=== PATIENT | male | born 1935 | race Caucasian/White ===

== ENCOUNTER 2017-10-01 14:33 | Observation (INO) | payer MEDICARE, BC ==
[2017-10-01] MEDS ORDERED: Sodium Chloride 0.9% 10 ML Syringe FLUSH PRN ×2 (14:46→17:57)
[2017-10-01] MEDS ORDERED: Aspirin 81 MG Tab.Chew PO ONE (14:46)
[2017-10-01] MEDS ORDERED: Nitroglycerin 0.4 MG Tab.SL SL PRN ×2 (14:46→17:57)
[2017-10-01] MEDS ORDERED: Morphine 4 MG/ML Syringe IVPUSH PRN ×2 (14:46→17:57)
--- NOTE | 2017-10-01 14:50 | EDM.PDOC ---
ED HPI GENERAL MEDICAL PROBLEM - General Chief Complaint: Chest Pain Stated Complaint: CHEST PAINS Time Seen by Provider: 10/01/17 14:39 Source of Information: Reports: Patient, Family, Old Records, RN Notes Reviewed History Limitations: Reports: No Limitations - History of Present Illness INITIAL COMMENTS - FREE TEXT/NARRATIVE: 82-year-old gentleman presents to the emergency department today with complaint of chest pain, he states the pain started about 3 hours prior it is predominantly across his chest but heavy on the left side he has no nausea no diaphoresis no shortness of breath he states he was not doing anything in particular when the chest pain, rates it 5 out of 10. Does have a known history coronary artery disease he does not recall when his last stent was placed, review of records show a stress test in 2015 which does show an abnormal stress test with signs of ischemia Chest Pain Score (Numeric/FACES): 5 - Related Data Allergies Allergy/AdvReac Type Severity Reaction Status Date / Time Penicillins Allergy Fatigue Verified 10/01/17 14:45 Home Meds: Home Meds Aspirin [Low Dose Aspirin EC] 81 mg PO DAILY 04/22/14 [History] Multivitamin with Minerals [[place]erritt Multivitamin with Mineral] 1 tab PO DAILY 04/22 [History] Metoprolol Succinate [Toprol XL] 25 mg PO DAILY 03/03/15 [History] Albuterol [Ventolin HFA] 2 puff IH Q6H PRN 10/01/17 [History] Chondroitin/Glucosamine [Glucosamine-Chondroitin] 2 tab PO DAILY 10/01/17 [ History] Pravastatin [Pravachol] 40 mg PO DAILY 10/01/17 [History] Past Medical History HEENT History: Reports: Cataract, Hard of Hearing, Impaired Vision, Macular Degeneration Cardiovascular History: Reports: CAD, High Cholesterol, Hypertension, SOB on Exertion, Stents Respiratory History: Reports: SOB Genitourinary History: Reports: Renal Disease, Other (See Below) Other Genitourinary History: 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 Neurological History: Reports: Brain Injury, Other (See Below) Other Neuro History: subdural hematoma Dermatologic History: Reports: Other (See Below) Other Dermatologic History: Rosacia - Infectious Disease History Infectious Disease History: Reports: Chicken Pox, Measles, Mumps, Rubella - Past Surgical History HEENT Surgical History: Reports: Adenoidectomy, Cataract Surgery, Eye Surgery, Tonsillectomy Cardiovascular Surgical History: Reports: Coronary Artery Bypass, Coronary Artery Stent Male Surgical History: Reports: Other (See Below) Neurological Surgical History: Reports: Other (See Below) Social & Family History - Tobacco Use Smoking Status *Q: Never Smoker - Caffeine Use Caffeine Use: Reports: Coffee, Soda - Recreational Drug Use Recreational Drug Use: No ED ROS GENERAL - Review of Systems Review Of Systems: See Below Constitutional: Reports: No Symptoms HEENT: Reports: No Symptoms Respiratory: Reports: No Symptoms Cardiovascular: Reports: Chest Pain GI/Abdominal: Reports: No Symptoms : Reports: No Symptoms Musculoskeletal: Reports: No Symptoms Skin: Reports: No Symptoms Neurological: Reports: No Symptoms ED EXAM, GENERAL - Physical Exam Exam: See Below Free Text/Narrative:: General: Male, not in any distress, alert and oriented x3 HEENT: head is atraumatic normocephalic, eyes pupils equal round reactive to light, sclera clear no conjunctivitis appreciated. Ears tympanic membranes clear and keene landmarks and light reflex are present bilaterally canals are clear. Nose no septal deviation, nares are clear, no blood present. Mouth mucosa is moist and pink no erythema or exudate noted in soft palate, tongue is midline uvula is midline, dentition is intact. Neck: Supple no thyromegaly no tracheal deviation. Nodes: Cervical nodes subclavicular nodes nontender no palpable lymphadenopathy noted. Lungs: clear to auscultation bilaterally with symmetrical respirations, no adventitious noise appreciated. CV: Regular rate and rhythm S1 and S2 appreciated no murmurs rubs or gallops noted. Abdomen: Soft, nontender, no palpable masses or organomegaly appreciated, no distention no guarding bowel sounds are present, . Neuro: Cranial nerves II through XII grossly intact Skin: Warm and dry, intact Extremities: No lower extremity edema appreciated, Course - Vital Signs Last Recorded V/S: Last Vital Signs Temp 98.8 F 10/01/17 14:39 Pulse 58 L 10/01/17 16:24 Resp 15 10/01/17 16:24 BP 114/53 L 10/01/17 16:24 Pulse Ox 99 10/01/17 16:24 - Orders/Labs/Meds Orders: Active Orders 24 hr Category Date Time Status Cardiac Monitoring [RC] .As Directed Care 10/01/17 14:46 Active EKG Documentation Completion [RC] ASDIRECTED Care 10/01/17 14:47 Active EKG Documentation Completion [RC] ASDIRECTED Care 10/01/17 15:01 Active Peripheral IV Care [RC] . DIRECTED Care 10/01/17 14:47 Active Chest 1V Frontal [CR] Stat Exams 10/01/17 14:47 Taken Morphine Med 10/01/17 14:46 Active 4 mg IVPUSH Q10M PRN Nitroglycerin [Nitrostat] Med 10/01/17 14:46 Active 0.4 mg SL Q5M PRN Sodium Chloride 0.9% [Saline Flush] Med 10/01/17 14:46 Active 10 ml FLUSH ASDIRECTED PRN Peripheral IV Insertion Adult [OM.PC] Stat Oth 10/01/17 14:46 Ordered Saline Lock Insert [OM.PC] Stat Oth 10/01/17 14:46 Ordered EKG 12 Lead [EK] Stat Ther 10/01/17 14:47 Ordered EKG 12 Lead [EK] Stat Ther 10/01/17 15:01 Ordered Medication Orders Morphine Sulfate (Morphine) 4 mg IVPUSH Q10M PRN PRN Reason: Chest Pain Stop: 10/02/17 14:46 Nitroglycerin (Nitrostat) 0.4 mg SL Q5M PRN PRN Reason: Chest Pain Stop: 10/02/17 14:46 Last Admin: 10/01/17 14:51 Dose: 0.4 mg Sodium Chloride (Saline Flush) 10 ml FLUSH ASDIRECTED PRN PRN Reason: Keep Vein Open Last Admin: 10/01/17 15:06 Dose: 10 ml Labs: Laboratory Tests 10/01/17 10/01/17 Range/Units 14:59 14:59 WBC 6.4 (4.5-11.0) K/uL RBC 4.76 (4.30-5.90) M/uL Hgb 14.4 (12.0-15.0) g/dL Hct 42.6 (40.0-54.0) % MCV 90 (80-98) fL MCH 30 (27-31) pg MCHC 34 (32-36) % Plt Count 155 (150-400) K/uL Neut % (Auto) 80 H (36-66) % Lymph % (Auto) 11 L (24-44) % [place] % (Auto) 8 H (2-6) % Eos % (Auto) 1 L (2-4) % Baso % (Auto) 0 (0-1) % Sodium 141 (140-148) mmol/L Potassium 4.0 (3.6-5.2) mmol/L Chloride 107 (100-108) mmol/L Carbon Dioxide 25 (21-32) mmol/L Anion Gap 9.4 (5.0-14.0) mmol/L BUN 22 H (7-18) mg/dL Creatinine 1.5 H (0.8-1.3) mg/dL Est Cr Clr Drug Dosing 40.96 mL/min Estimated GFR (MDRD) 45 L (>60) Glucose 152 H (74-106) mg/dL Calcium 8.8 (8.5-10.1) mg/dL Total Bilirubin 0.9 (0.2-1.0) mg/dL AST 22 (15-37) U/L ALT 26 (12-78) U/L Alkaline Phosphatase 65 (46-116) U/L CK-MB (CK-2) 3.1 (0-3.6) mg/mL Troponin I < 0.017 (0.000-0.056) ng/mL Total Protein 6.3 L (6.4-8.2) g/dL Albumin 3.3 L (3.4-5.0) g/dL Globulin 3.0 (2.3-3.5) g/dL Albumin/Globulin Ratio 1.1 L (1.2-2.2) Meds: Medications Generic Name Dose Route Start Last Admin Trade Name Freq PRN Reason Stop Dose Admin Morphine Sulfate 4 mg 10/01/17 14:46 Morphine IVPUSH 10/02/17 14:46 Q10M PRN Chest Pain Nitroglycerin 0.4 mg 10/01/17 14:46 10/01/17 14:51 Nitrostat SL 10/02/17 14:46 0.4 mg Q5M PRN Administration Chest Pain Sodium Chloride 10 ml 10/01/17 14:46 10/01/17 15:06 Saline Flush FLUSH 10 ml ASDIRECTED PRN Administration Keep Vein Open Discontinued Medications Generic Name Dose Route Start Last Admin Trade Name Freq PRN Reason Stop Dose Admin Aspirin 324 mg 10/01/17 14:46 10/01/17 14:51 Aspirin PO 10/01/17 14:47 324 mg ONETIME ONE Administration Departure - Departure Time of Disposition: 16:28 Disposition: Admitted As Inpatient 65 Condition: Fair Clinical Impression: Unstable angina Referrals: PCP,None [Primary Care Provider] - Forms: ED Department Discharge - My Orders Last 24 Hours: My Active Orders 10/01/17 14:46 Cardiac Monitoring [RC] .As Directed Morphine 4 mg IVPUSH Q10M PRN Nitroglycerin [Nitrostat] 0.4 mg SL Q5M PRN Sodium Chloride 0.9% [Saline Flush] 10 ml FLUSH ASDIRECTED PRN Peripheral IV Insertion Adult [OM.PC] Stat Saline Lock Insert [OM.PC] Stat 10/01/17 14:47 EKG Documentation Completion [RC] ASDIRECTED Peripheral IV Care [RC] . DIRECTED Chest 1V Frontal [CR] Stat EKG 12 Lead [EK] Stat 10/01/17 15:01 EKG Documentation Completion [RC] ASDIRECTED EKG 12 Lead [EK] Stat - Assessment/Plan Last 24 Hours: My Active Orders 10/01/17 14:46 Cardiac Monitoring [RC] .As Directed Morphine 4 mg IVPUSH Q10M PRN Nitroglycerin [Nitrostat] 0.4 mg SL Q5M PRN Sodium Chloride 0.9% [Saline Flush] 10 ml FLUSH ASDIRECTED PRN Peripheral IV Insertion Adult [OM.PC] Stat Saline Lock Insert [OM.PC] Stat 10/01/17 14:47 EKG Documentation Completion [RC] ASDIRECTED Peripheral IV Care [RC] . 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 Fong fire production operator social professionals at [facility], recommended admission for rule out with serial troponins, if troponins elevate recommended inpatient catheterization and transfer to [place], however if troponins are negative remains chest pain-free during observation recommend cardiac catheterization as an outpatient within the next week. Called discussed case hospitalist social professionals he agreed to come and evaluate the patient emergency department for admission This note was dictated using [employer] voice recognition software please call with any questions on syntax or grammar.
--- NOTE | 2017-10-01 17:56 | PCM.HP ---
H&P History of Present Illness - General Date of Service: 10/01/17 Admit Problem/Dx: Admission Diagnosis/Problem Admission Diagnosis/Problem Chest pain Source of Information: Patient, Family, Provider, RN Notes Reviewed History Limitations: Reports: No Limitations - History of Present Illness Initial Comments - Free Text/Narative: Mr. Ang is an 82-year-old gentleman who is admitted through the emergency department to observation status for further evaluation and management of chest pain. He has a known history of coronary artery disease and is status post coronary artery bypass done several years ago. He also has had further intervention since then with angioplasty and stent placement although he states this also has been several years ago. Today he noted onset of progressively more severe pain across his central chest described as a moderate to severe ache that became worse. There were no associated symptoms of shortness of breath , diaphoresis, or nausea. After the pain had lasted approximately 2 hours at home he came into the emergency department for further evaluation. Initial EKG did show mild ST segment depression in the anterolateral leads. He was given one sublingual nitroglycerin and his pain resolved, there was modest improvement in the ST segment depression noted after the nitroglycerin. Other labs have been normal including troponin level and CK-MB. Risk factors for coronary artery disease include hypertension, hypercholesterolemia, and a positive family history. Calculated HEART score is 6. Chest Pain Score (Numeric/FACES): 5 - Related Data Allergies/Adverse Reactions: Allergies Allergy/AdvReac Type Severity Reaction Status Date / Time Penicillins Allergy Fatigue Verified 10/01/17 14:45 Home Medications: Home Meds Aspirin [Low Dose Aspirin EC] 81 mg PO DAILY 04/22/14 [History] Multivitamin with Minerals [Merritt Multivitamin with Mineral] 1 tab PO DAILY 04/22 [History] Metoprolol Succinate [Toprol XL] 25 mg PO DAILY 03/03/15 [History] Albuterol [Ventolin HFA] 2 puff IH Q6H PRN 10/01/17 [History] Chondroitin/Glucosamine [Glucosamine-Chondroitin] 2 tab PO DAILY 10/01/17 [ History] Pravastatin [Pravachol] 40 mg PO DAILY 10/01/17 [History] Past Medical History HEENT History: Reports: Cataract, Hard of Hearing, Impaired Vision, Macular Degeneration Cardiovascular History: Reports: CAD, High Cholesterol, Hypertension, SOB on Exertion, Stents Respiratory History: Reports: SOB Genitourinary History: Reports: Renal Disease, Other (See Below) Other Genitourinary History: 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 Neurological History: Reports: Brain Injury, Other (See Below) Other Neuro History: subdural hematoma Dermatologic History: Reports: Other (See Below) Other Dermatologic History: [place] - Infectious Disease History Infectious Disease History: Reports: Chicken Pox, Measles, Mumps, Rubella - Past Surgical History HEENT Surgical History: Reports: Adenoidectomy, Cataract Surgery, Eye Surgery, Tonsillectomy Cardiovascular Surgical History: Reports: Coronary Artery Bypass, Coronary Artery Stent Male Surgical History: Reports: Other (See Below) Neurological Surgical History: Reports: Other (See Below) Social & Family History - Tobacco Use Smoking Status *Q: Never Smoker - Caffeine Use Caffeine Use: Reports: Coffee, Soda - Recreational Drug Use Recreational Drug Use: No H&P Review of Systems - Review of Systems: Review Of Systems: See Below General: Denies: Fever, Chills, Weakness, Diaphoresis HEENT: Reports: No Symptoms Pulmonary: Reports: No Symptoms Cardiovascular: Reports: Chest Pain, Dyspnea on Exertion. Denies: Palpitations , Orthopnea, PND, Edema, Lightheadedness, Syncope Gastrointestinal: Reports: No Symptoms Genitourinary: Reports: No Symptoms Musculoskeletal: Reports: No Symptoms Skin: Reports: No Symptoms Psychiatric: Reports: No Symptoms Neurological: Reports: No Symptoms Hematologic/Lymphatic: Reports: No Symptoms Immunologic: Reports: No Symptoms Exam - Exam Exam: See Below - Vital Signs Vital Signs: Last Vital Signs Temp 98.8 F 10/01/17 14:39 Pulse 58 L 10/01/17 16:24 Resp 15 10/01/17 16:24 BP 114/53 L 10/01/17 16:24 Pulse Ox 99 10/01/17 16:24 Weight: 440 lb 14.792 oz - Exam Quality Assessment: DVT Prophylaxis General: Alert, Oriented, Cooperative HEENT: Conjunctiva Clear, Hearing Intact, Mucosa Moist & [place], Normal Nasal Septum, Posterior Pharynx Clear, Pupils Equal Neck: Supple, Trachea Midline, +2 Carotid Pulse wo Bruit Lungs: Clear to Auscultation, Normal Respiratory Effort, Decreased Breath Sounds Cardiovascular: Regular Rate, Regular Rhythm, Normal S1, Normal S2 GI/Abdominal Exam: Soft, Non-Tender, No Organomegaly, No Distention Back Exam: Normal Inspection, Full Range of Motion Extremities: Non-Tender, No Pedal Edema Skin: Warm, Dry, Intact Neurological: Cranial Nerves Intact, Strength Equal Bilateral, Normal Speech, Normal Tone, Sensation Intact. No: Focal Deficit Neuro Extensive - Mental Status: Alert, Oriented x3, Normal Mood/Affect, Normal Cognition, Memory Intact - Patient Data Lab Results Last 24 hrs: Laboratory Results - last 24 hr 10/01/17 10/01/17 Range/Units 14:59 14:59 WBC 6.4 (4.5-11.0) K/uL RBC 4.76 (4.30-5.90) M/uL Hgb 14.4 (12.0-15.0) g/dL Hct 42.6 (40.0-54.0) % MCV 90 (80-98) fL MCH 30 (27-31) pg MCHC 34 (32-36) % Plt Count 155 (150-400) K/uL Neut % (Auto) 80 H (36-66) % Lymph % (Auto) 11 L (24-44) % [place] % (Auto) 8 H (2-6) % Eos % (Auto) 1 L (2-4) % Baso % (Auto) 0 (0-1) % Sodium 141 (140-148) mmol/L Potassium 4.0 (3.6-5.2) mmol/L Chloride 107 (100-108) mmol/L Carbon Dioxide 25 (21-32) mmol/L Anion Gap 9.4 (5.0-14.0) mmol/L BUN 22 H (7-18) mg/dL Creatinine 1.5 H (0.8-1.3) mg/dL Est Cr Clr Drug Dosing 40.96 mL/min Estimated GFR (MDRD) 45 L (>60) Glucose 152 H (74-106) mg/dL Calcium 8.8 (8.5-10.1) mg/dL Total Bilirubin 0.9 (0.2-1.0) mg/dL AST 22 (15-37) U/L ALT 26 (12-78) U/L Alkaline Phosphatase 65 (46-116) U/L CK-MB (CK-2) 3.1 (0-3.6) mg/mL Troponin I < 0.017 (0.000-0.056) ng/mL Total Protein 6.3 L (6.4-8.2) g/dL Albumin 3.3 L (3.4-5.0) g/dL Globulin 3.0 (2.3-3.5) g/dL Albumin/Globulin Ratio 1.1 L (1.2-2.2) Result Diagrams: 10/01/17 14:59 10/01/17 14:59 *Q Meaningful Use (ADM) - VTE Risk Assess *Q Each Risk Factor Represents 1 Point: None Total Score 1 Point Risk Factors: 0 Each Risk Factor Represents 2 Points: None Total Score 2 Point Risk Factors: 0 Each Risk Factor Represents 3 Points: Age 75 Years or Greater Total Score 3 Point Risk Factors: 3 Each Risk Factor Represents 5 Points: None Total Score 5 Point Risk Factors: 0 Venous Thromboembolism Risk Factor Score *Q: 3 Problem List Initiated/Reviewed/Updated: Yes Orders Last 24hrs: Active Orders 24 hr Category Date Time Status Patient Status Manage Transfer [TRANSFER] Routine ADT 10/01/17 17:40 Active Cardiac Monitoring [RC] .As Directed Care 10/01/17 14:46 Active EKG Documentation Completion [RC] ASDIRECTED Care 10/01/17 14:47 Active EKG Documentation Completion [RC] ASDIRECTED Care 10/01/17 15:01 Active Peripheral IV Care [RC] . DIRECTED Care 10/01/17 14:47 Active Chest 1V Frontal [CR] Stat Exams 10/01/17 14:47 Taken TROPONIN I [CHEM] Stat Lab 10/01/17 17:39 Ordered Morphine Med 10/01/17 14:46 Active 4 mg IVPUSH Q10M PRN Nitroglycerin [Nitrostat] Med 10/01/17 14:46 Active 0.4 mg SL Q5M PRN Sodium Chloride 0.9% [Saline Flush] Med 10/01/17 14:46 Active 10 ml FLUSH ASDIRECTED PRN Peripheral IV Insertion Adult [OM.PC] Stat Oth 10/01/17 14:46 Ordered Saline Lock Insert [OM.PC] Stat Oth 10/01/17 14:46 Ordered Resuscitation Status Routine Resus Stat 10/01/17 17:42 Ordered EKG 12 Lead [EK] Stat Ther 10/01/17 14:47 Ordered EKG 12 Lead [EK] Stat Ther 10/01/17 15:01 Ordered Medication Orders Morphine Sulfate (Morphine) 4 mg IVPUSH Q10M PRN PRN Reason: Chest Pain Stop: 10/02/17 14:46 Nitroglycerin (Nitrostat) 0.4 mg SL Q5M PRN PRN Reason: Chest Pain Stop: 10/02/17 14:46 Last Admin: 10/01/17 14:51 Dose: 0.4 mg Sodium Chloride (Saline Flush) 10 ml FLUSH ASDIRECTED PRN PRN Reason: Keep Vein Open Last Admin: 10/01/17 15:06 Dose: 10 ml Assessment/Plan Comment:: ASSESSMENT AND PLAN CHEST PAIN-2.5 to 3 hours of pain in this 82-year-old gentleman with a known history of coronary artery disease. EKG at the time of initial presentation the emergency department showed mild ST segment changes in the anterolateral leads that did improve modestly following sublingual nitroglycerin and resolution of his pain. He has had no recurrent pain since that time. -Observation admission, monitor in ICU -Serial troponin levels -If troponin levels become positive plan for inpatient transfer to [place] for cardiac catheterization -If troponin levels remain negative plan for outpatient cardiac catheterization in [place] later this week CHRONIC KIDNEY DISEASE STAGE III-history of nephrectomy, with partial resection of the other kidney -Closely monitor urine output and renal function MAINTENANCE ISSUES -DVT prophylaxis; ambulation -GI prophylaxis; not indicated -Valenzuela catheter; not indicated -Nutrition; regular diet -Nicotine dependence; not required CODE STATUS-FULL CODE ADMISSION STATUS-this patient will be admitted to observation status, expect no more than a one night hospital stay for evaluation and management of problems as outlined above. DISPOSITION-anticipate discharge to home after the hospital stay. PRIMARY CARE PROVIDER-Dr. Zamorano
[2017-10-01] MEDS ORDERED: Albuterol 8 GM Inhaler INH PRN (17:57)
[2017-10-01] MEDS ORDERED: Acetaminophen 325 MG Tab PO PRN (17:57)
[2017-10-01] MEDS ORDERED: Clopidogrel 75 MG Tab PO ONE (19:18)
[2017-10-01] MEDS ORDERED: Heparin Sodium 5,000 Units/ML Vial IVPUSH ONE (19:18)
[2017-10-01] MEDS ORDERED: Heparin Sodium/D5W 25,000 UNITS/500 ML BAG IV SCH (19:30)
--- NOTE | 2017-10-01 20:01 | PCM.DCSUM1 ---
Discharge Summary - Hospital Course Brief History: Mr. Sexton is an 82-year-old gentleman who is admitted to observation status through the emergency department for further evaluation and management of chest pain. - Discharge Data Discharge Date: 10/01/17 Discharge Disposition: DC/Tfer to Acute Hospital 02 Condition: Fair - Discharge Diagnosis/Problem(s) (1) Non-ST elevated myocardial infarction SNOMED Code(s): 439039161 ICD Code: I21.4 - NON-ST ELEVATION (NSTEMI) MYOCARDIAL INFARCTION Status: Acute Current Visit: Yes (2) CAD (coronary artery disease) SNOMED Code(s): 10915322 ICD Code: I25.10 - ATHSCL HEART DISEASE OF [place] CORONARY ARTERY W/O ANG PCTRS Status: Acute Current Visit: Yes (3) CKD (chronic kidney disease) stage 3, GFR 30-59 ml/min SNOMED Code(s): 262904254 ICD Code: N18.3 - CHRONIC KIDNEY DISEASE, STAGE 3 (MODERATE) Status: Acute Current Visit: Yes (4) Hypertension SNOMED Code(s): 70208715 ICD Code: I10 - ESSENTIAL (PRIMARY) HYPERTENSION Status: Acute Current Visit: Yes - Patient Summary/Data Hospital Course: Mr. Ang is an 82-year-old gentleman who was admitted through the emergency department to observation status for further evaluation and management of chest pain. He has a known history of coronary artery disease and is status post coronary artery bypass done several years ago. He also has had further intervention since then with angioplasty and stent placement although he states this also has been several years ago. Today he noted onset of progressively more severe pain across his central chest described as a moderate to severe ache that became worse. There were no associated symptoms of shortness of breath, diaphoresis, or nausea. After the pain had lasted approximately 2 hours at home he came into the emergency department for further evaluation. Initial EKG did show mild ST segment depression in the anterolateral leads. He was given one sublingual nitroglycerin and his pain resolved, there was modest improvement in the ST segment depression noted after the nitroglycerin. Other labs have been normal including troponin level and CK- MB. Risk factors for coronary artery disease include hypertension, hypercholesterolemia, and a positive family history. Calculated HEART score is 6. He was admitted to the hospital on observation status, with serial troponin levels ordered. A level had been ordered at the time of admission it did come back elevated at 0.208. I contacted Dr. Murphy thread cutter at [facility] in [facility], he is recommended patient be transferred to [place] for further evaluation in the morning with cardiac angiogram. Was given aspirin in the emergency department and is currently on a beta chucky as well as statin. He will be given 300 mg of Plavix by mouth and started on continuous infusion of heparin. He will be transferred to [place] via [facility]. - Patient Instructions Diet: Low Sodium Activity: As Tolerated Other/Special Instructions: Patient will be transferred to [facility] in [facility] via [facility] for further cardiac evaluation and management. - Discharge Plan *PRESCRIPTION DRUG MONITORING PROGRAM REVIEWED*: Not Applicable *COPY OF PRESCRIPTION DRUG MONITORING REPORT IN PATIENT FRANDY: Not Applicable Home Medications: Home Meds Aspirin [Low Dose Aspirin EC] 81 mg PO DAILY 04/22/14 [History] Multivitamin with Minerals [Merritt Multivitamin with Mineral] 1 tab PO DAILY 04/22 [History] Metoprolol Succinate [Toprol XL] 25 mg PO DAILY 03/03/15 [History] Albuterol [Ventolin HFA] 2 puff IH Q6H PRN 10/01/17 [History] Chondroitin/Glucosamine [Glucosamine-Chondroitin] 2 tab PO DAILY 10/01/17 [ History] Pravastatin [Pravachol] 40 mg PO DAILY 10/01/17 [History] Referrals: Sree Zamorano MD [Physician] - - Discharge Summary/Plan Comment DC Time >30 min.: No - Patient Data Vitals - Most Recent: Last Vital Signs Temp 97.5 F 10/01/17 18:15 Pulse 54 L 10/01/17 19:53 Resp 23 H 10/01/17 19:53 BP 115/37 L 10/01/17 19:53 Pulse Ox 99 10/01/17 19:53 Weight - Most Recent: 194 lb 7.163 oz Lab Results - Last 24 hrs: Laboratory Results - last 24 hr 10/01/17 10/01/17 10/01/17 Range/Units 14:59 14:59 17:52 WBC 6.4 (4.5-11.0) K/uL RBC 4.76 (4.30-5.90) M/uL Hgb 14.4 (12.0-15.0) g/dL Hct 42.6 (40.0-54.0) % MCV 90 (80-98) fL MCH 30 (27-31) pg MCHC 34 (32-36) % Plt Count 155 (150-400) K/uL Neut % (Auto) 80 H (36-66) % Lymph % (Auto) 11 L (24-44) % [place] % (Auto) 8 H (2-6) % Eos % (Auto) 1 L (2-4) % Baso % (Auto) 0 (0-1) % Sodium 141 (140-148) mmol/L Potassium 4.0 (3.6-5.2) mmol/L Chloride 107 (100-108) mmol/L Carbon Dioxide 25 (21-32) mmol/L Anion Gap 9.4 (5.0-14.0) mmol/L BUN 22 H (7-18) mg/dL Creatinine 1.5 H (0.8-1.3) mg/dL Est Cr Clr Drug Dosing 40.96 mL/min Estimated GFR (MDRD) 45 L (>60) Glucose 152 H (74-106) mg/dL Calcium 8.8 (8.5-10.1) mg/dL Total Bilirubin 0.9 (0.2-1.0) mg/dL AST 22 (15-37) U/L ALT 26 (12-78) U/L Alkaline Phosphatase 65 (46-116) U/L CK-MB (CK-2) 3.1 (0-3.6) mg/mL Troponin I < 0.017 0.208 H* (0.000-0.056) ng/mL Total Protein 6.3 L (6.4-8.2) g/dL Albumin 3.3 L (3.4-5.0) g/dL Globulin 3.0 (2.3-3.5) g/dL Albumin/Globulin Ratio 1.1 L (1.2-2.2) Med Orders - Current: Current Medications Acetaminophen (Tylenol) 650 mg PO Q4H PRN PRN Reason: Pain (Mild 1-3)/fever Albuterol (Ventolin Hfa) 0 gm INH Q4H PRN PRN Reason: Shortness of Breath Aspirin (Halfprin) 81 mg PO DAILY KHADAR Heparin Sodium/Dextrose (Heparin 25,000 Units In D5w 500 Ml) 25,000 units in 500 mls @ 20 mls/hr IV TITRATE KHADAR; Protocol Last Admin: 10/01/17 19:34 Dose: 1,000 units/hr, 20 mls/hr Metoprolol Succinate (Toprol Xl) 25 mg PO DAILY [facility] Morphine Sulfate (Morphine) 4 mg IVPUSH Q10M PRN PRN Reason: Chest Pain Stop: 10/02/17 17:45 Nitroglycerin (Nitrostat) 0.4 mg SL Q5M PRN PRN Reason: Chest Pain Stop: 10/02/17 17:45 Last Admin: 10/01/17 18:49 Dose: 0.4 mg Pravastatin Sodium (Pravachol) 40 mg PO DAILY [facility] Sodium Chloride (Saline Flush) 10 ml FLUSH ASDIRECTED PRN PRN Reason: Keep Vein Open Discontinued Medications Aspirin (Aspirin) 324 mg PO ONETIME ONE Stop: 10/01/17 14:47 Last Admin: 10/01/17 14:51 Dose: 324 mg Aspirin (Aspirin) 81 mg PO DAILY [facility] Clopidogrel Bisulfate (Plavix) 300 mg PO ONETIME ONE Stop: 10/01/17 19:19 Last Admin: 10/01/17 19:32 Dose: 300 mg Heparin Sodium (Porcine) (Heparin Sodium) 4,000 units IVPUSH .BOLUS ONE Stop: 10/01/17 19:19 Last Admin: 10/01/17 19:32 Dose: 4,000 units Morphine Sulfate (Morphine) 4 mg IVPUSH Q10M PRN PRN Reason: Chest Pain Stop: 10/02/17 14:46 Nitroglycerin (Nitrostat) 0.4 mg SL Q5M PRN PRN Reason: Chest Pain Stop: 10/02/17 14:46 Last Admin: 10/01/17 14:51 Dose: 0.4 mg Sodium Chloride (Saline Flush) 10 ml FLUSH ASDIRECTED PRN PRN Reason: Keep Vein Open Last Admin: 10/01/17 15:06 Dose: 10 ml - Exam General: Reports: Alert, Oriented, Cooperative, No Acute Distress Lungs: Reports: Clear to Auscultation, Normal Respiratory Effort Cardiovascular: Reports: Regular Rate, Regular Rhythm, No Murmurs GI/Abdominal Exam: Soft, Non-Tender, No Organomegaly, No Distention
[2017-10-01 20:21] VITALS: BP 109/53
[2017-10-02] MEDS ORDERED: Pravastatin 20 MG Tab PO SCH (09:00)
[2017-10-02] MEDS ORDERED: Aspirin 81 MG Tab.EC PO SCH (09:00)
[2017-10-02] MEDS ORDERED: Aspirin 81 MG Tab.Chew PO SCH (09:00)
[2017-10-02] MEDS ORDERED: Metoprolol Succinate 25 MG Tab.ER PO SCH (09:00)
--- NOTE | 2017-10-02 14:33 | CR ---
Portable chest Intact sternal wires are present. The heart and vascular structures are within normal limits. There a re no infiltrates or effusions. Impression: 1. No acute findings.
== END 2017-10-01 20:37 ==
LOC: JP.ED 14:33 → JP.ICU 17:40
PROVIDERS: ADMIT Hospitalist; ATTEND Hospitalist
DX: I21.4 Non-ST elevation (NSTEMI) myocardial infarction (principal); I25.10 Atherosclerotic heart disease of native coronary artery without angina pectoris; I12.9 Hypertensive chronic kidney disease with stage 1 through stage 4 chronic kidney disease, or unspecified chronic kidney disease; N18.3 Chronic kidney disease, stage 3 (moderate); Z90.5 Acquired absence of kidney; E78.00 Pure hypercholesterolemia, unspecified; Z79.82 Long term (current) use of aspirin; Z79.899 Other long term (current) drug therapy; Z95.1 Presence of aortocoronary bypass graft; Z95.5 Presence of coronary angioplasty implant and graft; Z88.0 Allergy status to penicillin
CPT/HCPCS: 36415; 71045; 80053; 82553; 84484; 85025; 93005; 96365; 96375; 96376; 99285; A9270; J1644; J7050

== ENCOUNTER 2017-11-03 11:01 | Emergency (ER) | payer MEDICARE, BC ==
[2017-11-03] MEDS ORDERED: Aspirin 81 MG Tab.Chew PO ONE (11:09)
--- NOTE | 2017-11-03 11:11 | EDM.PDOC ---
ED HPI GENERAL MEDICAL PROBLEM - General Chief Complaint: Chest Pain Stated Complaint: CHEST PAIN Time Seen by Provider: 11/03/17 11:11 Source of Information: Reports: Patient History Limitations: Reports: No Limitations - History of Present Illness INITIAL COMMENTS - FREE TEXT/NARRATIVE: pt arrived stating his pain was better at this time. He did have chest pain alot of the nite. He did take a nitro this am and he got relief with that. Onset: Today Duration: Hour(s): Location: Reports: Chest Associated Symptoms: Reports: Chest Pain, Shortness of Breath - Related Data Allergies Allergy/AdvReac Type Severity Reaction Status Date / Time Penicillins Allergy Fatigue Verified 11/03/17 11:10 Home Meds: Home Meds Aspirin [Low Dose Aspirin EC] 81 mg PO DAILY 04/22/14 [History] Multivitamin with Minerals [[place] Multivitamin with Mineral] 1 tab PO DAILY 04/22 [History] Metoprolol Succinate [Toprol XL] 25 mg PO DAILY 03/03/15 [History] Albuterol [Ventolin HFA] 2 puff IH Q6H PRN 10/01/17 [History] Chondroitin/Glucosamine [Glucosamine-Chondroitin] 2 tab PO DAILY 10/01/17 [ History] Pravastatin [Pravachol] 40 mg PO DAILY 10/01/17 [History] Clopidogrel [Plavix] 75 mg PO DAILY 11/03/17 [History] Past Medical History HEENT History: Reports: Cataract, Hard of Hearing, Impaired Vision, Macular Degeneration Cardiovascular History: Reports: CAD, High Cholesterol, Hypertension, SOB on Exertion, Stents Respiratory History: Reports: SOB Genitourinary History: Reports: Renal Disease, Other (See Below) Other Genitourinary History: 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 Neurological History: Reports: Brain Injury, Other (See Below) Other Neuro History: subdural hematoma Dermatologic History: Reports: Other (See Below) Other Dermatologic History: [place] - Infectious Disease History Infectious Disease History: Reports: Chicken Pox, Measles, Mumps, Rubella - Past Surgical History HEENT Surgical History: Reports: Adenoidectomy, Cataract Surgery, Eye Surgery, Tonsillectomy Cardiovascular Surgical History: Reports: Coronary Artery Bypass, Coronary Artery Stent Male Surgical History: Reports: Other (See Below) Neurological Surgical History: Reports: Other (See Below) Social & Family History - Caffeine Use Caffeine Use: Reports: Coffee, Soda ED ROS GENERAL - Review of Systems Review Of Systems: See Below Constitutional: Reports: No Symptoms HEENT: Reports: No Symptoms Respiratory: Reports: Shortness of Breath Cardiovascular: Reports: Chest Pain Endocrine: Reports: No Symptoms GI/Abdominal: Reports: No Symptoms : Reports: No Symptoms Musculoskeletal: Reports: No Symptoms Skin: Reports: Dryness ED EXAM, GENERAL - Physical Exam Exam: See Below Free Text/Narrative:: pt arrived with pain in the mid chest. He states this came on in the nite. He had a BLT for supper last nite. He did feel somewhat sob. He did have a grandaughter that was found this week in her apartment and this could be causing him some stress. Exam Limited By: No Limitations General Appearance: Alert, No Apparent Distress, Other (pt took a nitro before arrival and his pain was gone. ) Ears: Normal TMs Nose: Normal Inspection Throat/Mouth: Normal Inspection Head: Atraumatic Neck: Normal Inspection Respiratory/Chest: No Respiratory Distress Cardiovascular: Regular Rate, Rhythm GI/Abdominal: Soft (Male) Exam: Deferred Rectal (Males) Exam: Deferred Back Exam: Normal Inspection Extremities: Normal Inspection Neurological: Alert, Oriented, Normal Cognition Psychiatric: Anxious Course - Vital Signs Last Recorded V/S: Last Vital Signs Temp 36.6 C 11/03/17 11:18 Pulse 57 L 11/03/17 11:18 Resp 18 11/03/17 11:18 BP 146/53 H 11/03/17 11:18 Pulse Ox 99 11/03/17 11:18 - Orders/Labs/Meds Orders: Active Orders 24 hr Category Date Time Status EKG Documentation Completion [RC] ASDIRECTED Care 11/03/17 11:08 Active EKG 12 Lead [EK] Routine Ther 11/03/17 11:08 Ordered Labs: Laboratory Tests 11/03/17 11/03/17 11/03/17 Range/Units 11:12 11:12 11:12 WBC 4.9 (4.5-11.0) K/uL RBC 4.76 (4.30-5.90) M/uL Hgb 14.5 (12.0-15.0) g/dL Hct 42.7 (40.0-54.0) % MCV 90 (80-98) fL MCH 31 (27-31) pg MCHC 34 (32-36) % Plt Count 136 L (150-400) K/uL Neut % (Auto) 70 H (36-66) % Lymph % (Auto) 16 L (24-44) % [place] % (Auto) 12 H (2-6) % Eos % (Auto) 3 (2-4) % Baso % (Auto) 0 (0-1) % D-Dimer, Quantitative (0.0-400.0) ng/mL Sodium 136 L (140-148) mmol/L Potassium 4.1 (3.6-5.2) mmol/L Chloride 102 (100-108) mmol/L Carbon Dioxide 22 (21-32) mmol/L Anion Gap 16.1 H (5.0-14.0) mmol/L BUN 21 H (7-18) mg/dL Creatinine 1.3 (0.8-1.3) mg/dL Est Cr Clr Drug Dosing 47.26 mL/min Estimated GFR (MDRD) 53 L (>60) Glucose 117 H (74-106) mg/dL Calcium 8.5 (8.5-10.1) mg/dL Total Bilirubin 0.7 (0.2-1.0) mg/dL AST 18 (15-37) U/L ALT 25 (12-78) U/L Alkaline Phosphatase 62 (46-116) U/L Troponin I < 0.017 (0.000-0.056) ng/mL NT-Pro-B Natriuret Pep (5-450) pg/mL Total Protein 6.1 L (6.4-8.2) g/dL Albumin 3.4 (3.4-5.0) g/dL Globulin 2.7 (2.3-3.5) g/dL Albumin/Globulin Ratio 1.3 (1.2-2.2) Lipase (73-393) U/L Urine Color Urine Appearance Urine pH (4.5-8.0) Ur Specific [place] (1.008-1.030) Urine Protein (NEGATIVE) mg/dL Urine Glucose (UA) (NEGATIVE) mg/dL Urine Ketones (NEGATIVE) mg/dL Urine Occult Blood (NEGATIVE) Urine Nitrite (NEGAITVE) Urine Bilirubin (NEGATIVE) Urine Urobilinogen (NORMAL) mg/dL Ur Leukocyte Esterase (NEGATIVE) Urine RBC (0-5) Urine WBC (0-5) Ur Epithelial Cells Amorphous Sediment Urine Bacteria Urine Mucus 11/03/17 11/03/17 11/03/17 Range/Units 11:30 11:50 12:16 WBC (4.5-11.0) K/uL RBC (4.30-5.90) M/uL Hgb (12.0-15.0) g/dL Hct (40.0-54.0) % MCV (80-98) fL MCH (27-31) pg MCHC (32-36) % Plt Count (150-400) K/uL Neut % (Auto) (36-66) % Lymph % (Auto) (24-44) % [place] % (Auto) (2-6) % Eos % (Auto) (2-4) % Baso % (Auto) (0-1) % D-Dimer, Quantitative 291 (0.0-400.0) ng/mL Sodium (140-148) mmol/L Potassium (3.6-5.2) mmol/L Chloride (100-108) mmol/L Carbon Dioxide (21-32) mmol/L Anion Gap (5.0-14.0) mmol/L BUN (7-18) mg/dL Creatinine (0.8-1.3) mg/dL Est Cr Clr Drug Dosing mL/min Estimated GFR (MDRD) (>60) Glucose (74-106) mg/dL Calcium (8.5-10.1) mg/dL Total Bilirubin (0.2-1.0) mg/dL AST (15-37) U/L ALT (12-78) U/L Alkaline Phosphatase (46-116) U/L Troponin I (0.000-0.056) ng/mL NT-Pro-B Natriuret Pep 437 (5-450) pg/mL Total Protein (6.4-8.2) g/dL Albumin (3.4-5.0) g/dL Globulin (2.3-3.5) g/dL Albumin/Globulin Ratio (1.2-2.2) Lipase (73-393) U/L Urine Color Yellow Urine Appearance Slightly cloudy Urine pH 5.0 (4.5-8.0) Ur Specific [place] 1.020 (1.008-1.030) Urine Protein Negative (NEGATIVE) mg/dL Urine Glucose (UA) Normal (NEGATIVE) mg/dL Urine Ketones Negative (NEGATIVE) mg/dL Urine Occult Blood Negative (NEGATIVE) Urine Nitrite Negative (NEGAITVE) Urine Bilirubin Negative (NEGATIVE) Urine Urobilinogen 1 (NORMAL) mg/dL Ur Leukocyte Esterase Negative (NEGATIVE) Urine RBC Not seen (0-5) Urine WBC Not seen (0-5) Ur Epithelial Cells Not seen Amorphous Sediment Moderate Urine Bacteria Not seen Urine Mucus Moderate 11/03/17 11/03/17 Range/Units 13:14 14:08 WBC (4.5-11.0) K/uL RBC (4.30-5.90) M/uL Hgb (12.0-15.0) g/dL Hct (40.0-54.0) % MCV (80-98) fL MCH (27-31) pg MCHC (32-36) % Plt Count (150-400) K/uL Neut % (Auto) (36-66) % Lymph % (Auto) (24-44) % [place] % (Auto) (2-6) % Eos % (Auto) (2-4) % Baso % (Auto) (0-1) % D-Dimer, Quantitative (0.0-400.0) ng/mL Sodium (140-148) mmol/L Potassium (3.6-5.2) mmol/L Chloride (100-108) mmol/L Carbon Dioxide (21-32) mmol/L Anion Gap (5.0-14.0) mmol/L BUN (7-18) mg/dL Creatinine (0.8-1.3) mg/dL Est Cr Clr Drug Dosing mL/min Estimated GFR (MDRD) (>60) Glucose (74-106) mg/dL Calcium (8.5-10.1) mg/dL Total Bilirubin (0.2-1.0) mg/dL AST (15-37) U/L ALT (12-78) U/L Alkaline Phosphatase (46-116) U/L Troponin I < 0.017 (0.000-0.056) ng/mL NT-Pro-B Natriuret Pep (5-450) pg/mL Total Protein (6.4-8.2) g/dL Albumin (3.4-5.0) g/dL Globulin (2.3-3.5) g/dL Albumin/Globulin Ratio (1.2-2.2) Lipase 61 L (73-393) U/L Urine Color Urine Appearance Urine pH (4.5-8.0) Ur Specific [place] (1.008-1.030) Urine Protein (NEGATIVE) mg/dL Urine Glucose (UA) (NEGATIVE) mg/dL Urine Ketones (NEGATIVE) mg/dL Urine Occult Blood (NEGATIVE) Urine Nitrite (NEGAITVE) Urine Bilirubin (NEGATIVE) Urine Urobilinogen (NORMAL) mg/dL Ur Leukocyte Esterase (NEGATIVE) Urine RBC (0-5) Urine WBC (0-5) Ur Epithelial Cells Amorphous Sediment Urine Bacteria Urine Mucus Meds: Medications Discontinued Medications Generic Name Dose Route Start Last Admin Trade Name Freq PRN Reason Stop Dose Admin Aspirin 324 mg 11/03/17 11:09 11/03/17 11:24 Aspirin PO 11/03/17 11:10 324 mg ONETIME ONE Administration - Re-Assessments/Exams Free Text/Narrative Re-Assessment/Exam: 11/03/17 14:46 Pt had 2 trops both of which were normal. His ekg is unchanged. His other labs look good. His bnp is not highj and the ddimer does not have sig elevation. His chest xray is not remarkable, He had mild rt upper tenderness and he had a uS of the gb which showed multiople stones some were toward the neck of the GB. His lipase was niormal. Departure - Departure Time of Disposition: 14:50 Disposition: Home, Self-Care 01 Condition: Fair Clinical Impression: Atypical chest pain, Cholelithiasis Referrals: PCP,None [Primary Care Provider] - Forms: ED Department Discharge Care Plan Goals: appt with dR [facility]al[facility] IN 4-5 DAYS, RTC IF SEVERE PAIN RETURNS, DO NOT EAT LATE AT NITE, MAALOX OR GASEX BEFORE BEDTIME. - My Orders Last 24 Hours: My Active Orders 11/03/17 11:08 EKG Documentation Completion [RC] ASDIRECTED EKG 12 Lead [EK] Routine - Assessment/Plan Last 24 Hours: My Active Orders 11/03/17 11:08 EKG Documentation Completion [RC] ASDIRECTED EKG 12 Lead [EK] Routine
--- NOTE | 2017-11-03 12:59 | CR ---
Chest 1V Frontal HISTORY: sob COMPARISON: 10/01/2017, 03/03/2015 FINDINGS: Lungs appear clear and normally aerated. Cardiomediastinal silhouette is within normal limits. No vas cular redistribution or pleural fluid can be seen. Bony structures and soft tissues are unremarkable. IMPRESSION: No acute chest abnormality or significant interval change is identified.
--- NOTE | 2017-11-03 14:18 | US ---
Abdomen Ltd HISTORY: chest pain, pain between shoulder blades. FINDINGS: The liver appears within normal limits in size and echogenicity with no focal parenchymal abnormality identified. Portions of the left lobe of the liver are obscured by bowel gas. A couple small cysts u pper liver appears similar to CT exam of 05/10/2007. Gallbladder is within normal limits in size. A fe w echogenic gallstones with posterior shadowing are seen in the gallbladder. Gallbladder wall is not thickened. Wall thickness measures 3 mm. There is no pericholecystic fluid. Sonographic Steen sign i s negative. Biliary ducts are not dilated. Common bile duct measures 4 mm in diameter. The pancreas is obscured by bowel gas and could not be well visualized. Right kidney is within normal limits in size and echogenicity with no mass or hydronephrosis. A small cyst is noted upper right ki dney. The right kidney measures 11.9 cm in length. Abdominal aorta is not dilated measuring 2.1 cm in diameter distally. Inferior vena cava is obscured by bowel gas. Normal hepatopedal flow is seen in t he portal vein. IMPRESSION: 1. Right renal and hepatic cysts similar to prior CT exam. 2. Cholelithiasis without evidence for acute cholecystitis. 3. No other acute abnormality is identified. There is limited visualization of the pancreas and IVC. Findings were discussed with Dr. Arrington in the emergency department at 1413 hours.
[2017-11-03 14:57] VITALS: BP 149/80
== END 2017-11-03 15:05 | disposition home or self-care (01) ==
LOC: JP.ED 11:01
DX: R07.89 Other chest pain (principal); K80.20 Calculus of gallbladder without cholecystitis without obstruction; I10 Essential (primary) hypertension; E78.00 Pure hypercholesterolemia, unspecified; Z79.899 Other long term (current) drug therapy; Z88.0 Allergy status to penicillin; Z88.2 Allergy status to sulfonamides
CPT/HCPCS: 36415; 71045; 76705; 80053; 81001; 83690; 83880; 84484; 85025; 85379; 93005; 99285; A9270

== ENCOUNTER 2018-03-04 09:29 | Emergency (ER) | payer MEDICARE, BC ==
--- NOTE | 2018-03-04 10:52 | EDM.PDOC ---
ED HPI GENERAL MEDICAL PROBLEM - General Chief Complaint: General Stated Complaint: FALL, HIT FACE Time Seen by Provider: 03/04/18 10:25 Source of Information: Reports: Patient, Family - History of Present Illness INITIAL COMMENTS - FREE TEXT/NARRATIVE: 83-year-old with history of prior subdural hematoma, cardiac stent on Plavix who presents after fall at home 2 days ago and persistent dizziness. His concerns which led to his presentation today are somewhat difficult to follow. He presents with his daughter. He reports that 2 nights ago he was up using the restroom when he became dizzy and fell to the ground. He struck his head and there was a period of LOC of unknown duration. His helped him up to bed. He is since noticed that he's had dizziness and a mild headache. He reports that he is out of his dizzy however today symptoms are worse. He denies any new neck pain. He is otherwise feeling normal. He has no shortness of breath, chest pain, fevers, cough, abdominal pain, or myalgias. - Related Data Allergies Allergy/AdvReac Type Severity Reaction Status Date / Time Penicillins Allergy Fatigue Verified 03/04/18 09:46 Home Meds: Home Meds Aspirin [Low Dose Aspirin EC] 81 mg PO DAILY 04/22/14 [History] Multivitamin with Minerals [Merritt Multivitamin with Mineral] 1 tab PO DAILY 04/22 [History] Metoprolol Succinate [Toprol XL] 50 mg PO DAILY 03/03/15 [History] Albuterol [Ventolin HFA] 2 puff IH Q6H PRN 10/01/17 [History] Chondroitin/Glucosamine [Glucosamine-Chondroitin] 2 tab PO DAILY 10/01/17 [ History] Pravastatin [Pravachol] 40 mg PO DAILY 10/01/17 [History] Clopidogrel [Plavix] 75 mg PO DAILY 11/03/17 [History] Metoprolol Succinate [Toprol XL] 25 mg PO DAILY #14 tab.er 03/04/18 [Rx] Past Medical History HEENT History: Reports: Cataract, Hard of Hearing, Impaired Vision, Macular Degeneration Cardiovascular History: Reports: CAD, High Cholesterol, Hypertension, SOB on Exertion, Stents Respiratory History: Reports: SOB Gastrointestinal History: Reports: Chronic Constipation Genitourinary History: Reports: Renal Disease, Other (See Below) Other Genitourinary History: 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 Neurological History: Reports: Brain Injury, Other (See Below) Other Neuro History: subdural hematoma Dermatologic History: Reports: Other (See Below) Other Dermatologic History: Rosacia - Infectious Disease History Infectious Disease History: Reports: Chicken Pox, Measles, Mumps - Past Surgical History Head Surgeries/Procedures: Reports: None HEENT Surgical History: Reports: Adenoidectomy, Cataract Surgery, Eye Surgery, Tonsillectomy Cardiovascular Surgical History: Reports: Coronary Artery Bypass, Coronary Artery Stent Respiratory Surgical History: Reports: None GI Surgical History: Reports: None Male Surgical History: Reports: Other (See Below) Neurological Surgical History: Reports: Other (See Below) Musculoskeletal Surgical History: Reports: None Dermatological Surgical History: Reports: None Social & Family History - Tobacco Use Smoking Status *Q: Never Smoker Second Hand Smoke Exposure: No - Caffeine Use Caffeine Use: Reports: Coffee - Recreational Drug Use Recreational Drug Use: No ED ROS GENERAL - Review of Systems Review Of Systems: See Below Constitutional: Reports: No Symptoms HEENT: Reports: Vision Change Respiratory: Reports: No Symptoms Cardiovascular: Reports: No Symptoms Endocrine: Reports: No Symptoms GI/Abdominal: Reports: No Symptoms : Reports: No Symptoms Musculoskeletal: Reports: No Symptoms Skin: Reports: No Symptoms Neurological: Reports: Dizziness, Headache Psychiatric: Reports: No Symptoms Hematologic/Lymphatic: Reports: No Symptoms Immunologic: Reports: No Symptoms ED EXAM, GENERAL - Physical Exam Exam: See Below Exam Limited By: No Limitations General Appearance: Alert, WD/WN Ears: Normal External Exam Nose: Normal Inspection Head: Other (Ecchymosis below the right eye, abrasion of the right forehead.) Neck: Normal Inspection, Non-Tender, Full Range of Motion Respiratory/Chest: No Respiratory Distress Cardiovascular: Regular Rate, Rhythm, No Murmur GI/Abdominal: Normal Bowel Sounds, Soft, Non-Tender Back Exam: Normal Inspection Extremities: Normal Inspection Neurological: Alert, Oriented, CN II-XII Intact, No Motor/Sensory Deficits Psychiatric: Normal Affect Skin Exam: Warm, Dry Course - Vital Signs Last Recorded V/S: Last Vital Signs Temp 36.4 C 03/04/18 09:49 Pulse 50 L 03/04/18 14:06 Resp 18 03/04/18 14:06 BP 146/76 H 03/04/18 14:06 Pulse Ox 97 03/04/18 14:06 - Orders/Labs/Meds Orders: Active Orders 24 hr Category Date Time Status EKG Documentation Completion [RC] ASDIRECTED Care 03/04/18 10:39 Active Cervical Spine wo Cont [CT] Stat Exams 03/04/18 10:38 Taken Head wo Cont [CT] Stat Exams 03/04/18 10:38 Taken EKG 12 Lead [EK] Routine Ther 03/04/18 10:39 Ordered Labs: Laboratory Tests 03/04/18 03/04/18 Range/Units 10:45 10:45 WBC 5.4 (4.5-11.0) K/uL RBC 4.55 (4.30-5.90) M/uL Hgb 13.9 (12.0-15.0) g/dL Hct 40.8 (40.0-54.0) % MCV 90 (80-98) fL MCH 31 (27-31) pg MCHC 34 (32-36) % Plt Count 153 (150-400) K/uL Sodium 141 (140-148) mmol/L Potassium 4.3 (3.6-5.2) mmol/L Chloride 108 (100-108) mmol/L Carbon Dioxide 23 (21-32) mmol/L Anion Gap 10.1 (5.0-14.0) mmol/L BUN 20 H (7-18) mg/dL Creatinine 1.2 (0.8-1.3) mg/dL Est Cr Clr Drug Dosing 48.81 mL/min Estimated GFR (MDRD) 58 L (>60) Glucose 118 H (74-106) mg/dL Calcium 8.7 (8.5-10.1) mg/dL - Re-Assessments/Exams Free Text/Narrative Re-Assessment/Exam: 83-year-old gentleman presents with a primary concern seemingly of headache and increased dizziness since a syncopal event and fall 2 days ago. He is on Plavix. He has a history of prior subdural hematoma primary concern at this time is for possible intracranial bleed given his history and anticoagulation status. We obtain a noncontrast CT of the head and neck. will obtain screening labs. And EKG. He does have a history of prior presyncope and syncopal symptoms, is on metoprolol which was recently increased so this is likely contributing. He has no new infectious symptoms, do not believe workup for this is indicated at screening labs. 03/04/18 10:50 Free Text/Narrative Re-Assessment/Exam: Labs and imaging unremarkable. Heart rate persistently 50 bpm in the ED. Suspect that his metoprolol may be contributing to his presyncopal symptoms. We will reduce the dose by half to 25 mg and he will follow-up with his primary doctor. 03/04/18 14:39 Departure - Departure Time of Disposition: 14:35 Disposition: Home, Self-Care 01 Clinical Impression: Dizzy spells - Discharge Information *PRESCRIPTION DRUG MONITORING PROGRAM REVIEWED*: No *COPY OF PRESCRIPTION DRUG MONITORING REPORT IN PATIENT FRANDY: No Prescriptions: Metoprolol Succinate [Toprol XL] 25 mg PO DAILY #14 tab.er Referrals: PCP,None [Primary Care Provider] - Forms: ED Department Discharge Additional Instructions: We did not find any abnormalities on your workup in the ED today. We recommend that you decrease your metoprolol to 25 mg daily, a new prescription has been written for this. You should follow up closely with your primary doctor to review medications and ensure the issues with balance are improving. - My Orders Last 24 Hours: My Active Orders 03/04/18 10:38 Cervical Spine wo Cont [CT] Stat Head wo Cont [CT] Stat 03/04/18 10:39 EKG Documentation Completion [RC] ASDIRECTED EKG 12 Lead [EK] Routine - Assessment/Plan Last 24 Hours: My Active Orders 03/04/18 10:38 Cervical Spine wo Cont [CT] Stat Head wo Cont [CT] Stat 03/04/18 10:39 EKG Documentation Completion [RC] ASDIRECTED EKG 12 Lead [EK] Routine
[2018-03-04 14:06] VITALS: BP 146/76
== END 2018-03-04 14:48 | disposition home or self-care (01) ==
LOC: JP.ED 09:29
DX: R42 Dizziness and giddiness (principal); S00.11XA Contusion of right eyelid and periocular area, initial encounter; S00.81XA Abrasion of other part of head, initial encounter; E78.00 Pure hypercholesterolemia, unspecified; I10 Essential (primary) hypertension; I25.10 Atherosclerotic heart disease of native coronary artery without angina pectoris; Z95.5 Presence of coronary angioplasty implant and graft; Z79.01 Long term (current) use of anticoagulants; Z88.0 Allergy status to penicillin; Z79.82 Long term (current) use of aspirin; Z79.899 Other long term (current) drug therapy; W18.39XA Other fall on same level, initial encounter
CPT/HCPCS: 36415; 70450; 72125; 80048; 85027; 93005; 93010; 99284-25

== ENCOUNTER 2018-12-23 09:06 | Emergency (ER) | payer MEDICARE, BC ==
[2018-12-23 09:50] VITALS: BP 162/79; PULSE 57
--- NOTE | 2018-12-23 09:56 | EDM.PDOC ---
ED HPI GENERAL MEDICAL PROBLEM - General Chief Complaint: Chest Pain Stated Complaint: HEART PROBLEMS??? Time Seen by Provider: 12/23/18 09:51 Source of Information: Reports: Patient, Family, RN Notes Reviewed History Limitations: Reports: No Limitations - History of Present Illness INITIAL COMMENTS - FREE TEXT/NARRATIVE: 83-year-old gentleman presents emergency department today complaint of chest pain, he had chest pain last night resolved and then he had a brief stint of chest pain this morning with radiations into the left shoulder that now has resolved at this time he is chest pain-free no diaphoresis no shortness of breath does have a coronary artery history with stent placement, he did take an aspirin this morning - Related Data Allergies Allergy/AdvReac Type Severity Reaction Status Date / Time Penicillins Allergy Fatigue Verified 03/04/18 09:46 Home Meds: Home Meds Aspirin [Low Dose Aspirin EC] 81 mg PO DAILY 04/22/14 [History] Multivitamin with Minerals [Merritt Multivitamin with Mineral] 1 tab PO DAILY 04/22 [History] Metoprolol Succinate [Toprol XL] 50 mg PO DAILY 03/03/15 [History] Albuterol [Ventolin HFA] 2 puff IH Q6H PRN 10/01/17 [History] Chondroitin/Glucosamine [Glucosamine-Chondroitin] 2 tab PO DAILY 10/01/17 [ History] Pravastatin [Pravachol] 40 mg PO DAILY 10/01/17 [History] Clopidogrel [Plavix] 75 mg PO DAILY 11/03/17 [History] Past Medical History HEENT History: Reports: Cataract, Hard of Hearing, Impaired Vision, Macular Degeneration Cardiovascular History: Reports: CAD, High Cholesterol, Hypertension, SOB on Exertion, Stents Respiratory History: Reports: SOB Gastrointestinal History: Reports: Chronic Constipation Genitourinary History: Reports: Renal Disease, Other (See Below) Other Genitourinary History: 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 Neurological History: Reports: Brain Injury, Other (See Below) Other Neuro History: subdural hematoma Dermatologic History: Reports: Other (See Below) Other Dermatologic History: Rosacia - Infectious Disease History Infectious Disease History: Reports: Chicken Pox, Measles, Mumps - Past Surgical History Head Surgeries/Procedures: Reports: None HEENT Surgical History: Reports: Adenoidectomy, Cataract Surgery, Eye Surgery, Tonsillectomy Cardiovascular Surgical History: Reports: Coronary Artery Bypass, Coronary Artery Stent Respiratory Surgical History: Reports: None GI Surgical History: Reports: None Male Surgical History: Reports: Other (See Below) Neurological Surgical History: Reports: Other (See Below) Musculoskeletal Surgical History: Reports: None Dermatological Surgical History: Reports: None Social & Family History - Tobacco Use Smoking Status *Q: Former Smoker - Caffeine Use Caffeine Use: Reports: Coffee - Recreational Drug Use Recreational Drug Use: No ED ROS GENERAL - Review of Systems Review Of Systems: See Below Constitutional: Reports: No Symptoms HEENT: Reports: No Symptoms Respiratory: Reports: No Symptoms Cardiovascular: Reports: Chest Pain GI/Abdominal: Reports: No Symptoms ED EXAM, GENERAL - Physical Exam Exam: See Below Exam Limited By: No Limitations General Appearance: Alert, WD/WN, No Apparent Distress Neck: Normal Inspection, Supple, Non-Tender, Full Range of Motion Respiratory/Chest: No Respiratory Distress, Lungs Clear, Normal Breath Sounds, No Accessory Muscle Use, Chest Non-Tender Cardiovascular: Regular Rate, Rhythm, No Murmur GI/Abdominal: Soft, Non-Tender Extremities: No Pedal Edema Course - Vital Signs Last Recorded V/S: Last Vital Signs Temp 97.6 F 12/23/18 09:28 Pulse 57 L 12/23/18 09:28 Resp 19 12/23/18 09:28 BP 162/79 H 12/23/18 09:28 Pulse Ox 96 12/23/18 09:28 - Orders/Labs/Meds Orders: Active Orders 24 hr Category Date Time Status Cardiac Monitoring [RC] .As Directed Care 12/23/18 09:55 Active EKG Documentation Completion [RC] ASDIRECTED Care 12/23/18 09:55 Active EKG 12 Lead [EK] Stat Ther 12/23/18 09:55 Ordered Labs: Laboratory Tests 12/23/18 12/23/18 Range/Units 10:00 10:00 WBC 5.3 (4.5-11.0) K/uL RBC 4.75 (4.30-5.90) M/uL Hgb 14.6 (12.0-15.0) g/dL Hct 43.5 (40.0-54.0) % MCV 92 (80-98) fL MCH 31 (27-31) pg MCHC 34 (32-36) % Plt Count 169 (150-400) K/uL Neut % (Auto) 74 H (36-66) % Lymph % (Auto) 15 L (24-44) % [place] % (Auto) 8 H (2-6) % Eos % (Auto) 3 (2-4) % Baso % (Auto) 0 (0-1) % Sodium 139 L (140-148) mmol/L Potassium 4.4 (3.6-5.2) mmol/L Chloride 107 (100-108) mmol/L Carbon Dioxide 28 (21-32) mmol/L Anion Gap 8.4 (5.0-14.0) mmol/L BUN 18 (7-18) mg/dL Creatinine 1.3 (0.8-1.3) mg/dL Est Cr Clr Drug Dosing 46.43 mL/min Estimated GFR (MDRD) 53 L (>60) Glucose 108 H (74-106) mg/dL Calcium 8.5 (8.5-10.1) mg/dL Total Bilirubin 0.7 (0.2-1.0) mg/dL AST 15 (15-37) U/L ALT 24 (12-78) U/L Alkaline Phosphatase 55 (46-116) U/L Troponin I < 0.017 (0.000-0.056) ng/mL Total Protein 6.0 L (6.4-8.2) g/dL Albumin 3.2 L (3.4-5.0) g/dL Globulin 2.8 (2.3-3.5) g/dL Albumin/Globulin Ratio 1.1 L (1.2-2.2) - Re-Assessments/Exams Free Text/Narrative Re-Assessment/Exam: 12/23/18 10:41 heart score is 4 Departure - Departure Time of Disposition: 10:45 Disposition: Home, Self-Care 01 Condition: Fair Clinical Impression: Atypical chest pain Referrals: Sree Zamorano MD [Primary Care Provider] - Forms: ED Department Discharge Additional Instructions: Try your nitroglycerin as needed for chest pain, Please followup with your primary care provider in 3-5 days if not better, please call return to the emergency department with worsening of symptoms. - My Orders Last 24 Hours: My Active Orders 12/23/18 09:55 Cardiac Monitoring [RC] .As Directed EKG Documentation Completion [RC] ASDIRECTED EKG 12 Lead [EK] Stat - Assessment/Plan Last 24 Hours: My Active Orders 12/23/18 09:55 Cardiac Monitoring [RC] .As Directed EKG Documentation Completion [RC] ASDIRECTED EKG 12 Lead [EK] Stat Plan: Assessment Acuity = acute Site and laterality = atypical chest pain complicated patient with known history of coronary artery disease Etiology = unknown Manifestations = none Location of injury = Home Lab values = CBC, CMP, troponin all negative EKG demonstrates a sinus rhythm no signs of ischemia old Q waves are present chest x-ray shows no acute process Plan I did review lab work EKG chest x-ray results with him I discussed with him possibility further evaluation stress test however he declined at this time would prefer to just to follow up with his primary care for further evaluation he does have nitroglycerin at home which she has not used he is going to try that to see if works on his chest pain This note was dictated using [employer] voice recognition software please call with any questions on syntax or grammar.
--- NOTE | 2018-12-23 10:35 | CRLCR ---
INDICATION: CHEST PAIN COMPARISON: April, 2 View Chest. Findings: The lungs are clear. Pulmonary vascularity, mediastinum and cardiac silhouette are within normal limits. No effusions and no pneumothorax. Osseous structures appear unremarkable. Impression: No evidence of acute cardiopulmonary disease. Dictated by: Jaswinder Deshpande MD @ 12/23/2018 10:33:12 (Electronically Signed)
== END 2018-12-23 10:54 | disposition home or self-care (01) ==
LOC: JP.ED 09:06
DX: R07.89 Other chest pain (principal); I10 Essential (primary) hypertension; E78.5 Hyperlipidemia, unspecified; Z88.0 Allergy status to penicillin; Z79.82 Long term (current) use of aspirin; Z79.899 Other long term (current) drug therapy; Z79.01 Long term (current) use of anticoagulants; I25.10 Atherosclerotic heart disease of native coronary artery without angina pectoris; Z95.5 Presence of coronary angioplasty implant and graft; Z87.891 Personal history of nicotine dependence
CPT/HCPCS: 36415; 71046; 80053; 84484; 85025; 93005; 99285-25

== ENCOUNTER 2022-04-05 17:15 | Emergency (ER) | payer MEDICARE, BC ==
[2022-04-05 18:31] VITALS: BP 159/68; PULSE 58
[2022-04-05 18:53] LABS: TROPONIN I HIGH SENSITIVITY 11.3 pg/mL (<=60.3)
== END 2022-04-05 19:07 | disposition home or self-care (01) ==
LOC: JP.ED 17:15
DX: R07.89 Other chest pain (principal); I25.10 Atherosclerotic heart disease of native coronary artery without angina pectoris; I10 Essential (primary) hypertension; Z88.0 Allergy status to penicillin; Z79.899 Other long term (current) drug therapy
CPT/HCPCS: 36415; 80048; 84484; 85025; 93005; 99285